=== PATIENT | female | born 1980 | race Caucasian/White ===

== ENCOUNTER 2023-05-09 11:25 | Emergency (ER) | payer BC, SELFPAY ==
[2023-05-09 11:39] VITALS: BP 166/98; PULSE 73; RESP 16; TEMP 37.2; O2SAT 99
--- NOTE | 2023-05-09 11:51 | ED_ITS ---
HPI - Abdominal Pain General Chief Complaint: Abdominal Pain Stated Complaint: STOMACH PAIN Time Seen by Provider: 05/09/23 11:33 Source: patient Mode of arrival: walk-in Related Data Home Medications Medication Instructions Recorded Confirmed metoprolol succinate 25 mg 25 mg PO DAILY 05/09/23 05/09/23 tablet,extended release 24 hr montelukast 10 mg tablet 10 mg PO DAILY 05/09/23 05/09/23 (Singulair) olmesartan 20 mg tablet 20 mg PO DAILY 05/09/23 05/09/23 Allergies Allergy/AdvReac Type Severity Reaction Status Date / Time No Known Drug Allergies Allergy Verified 05/09/23 11:39 [facility] Medical History (Updated 05/09/23 @ 15:12 by Justin Aragon MD) Exam Narrative Exam Narrative: patient appears uncomfortable but did not want anything for pain on her arrival. She is awake alert oriented ?3. Constitutional she has no scleral icterus or jaundice. Respirations no respiratory distress no wheezes rales or rhonchi. Cardio heart sounds normal no S3-S4 murmur. Gastrointestinal abdomen was not distended but she did have equivocal Robles sign. No tenderness at McBurney's point. There is good bowel sounds. No evidence of trauma injury or hepatosplenomegaly. Constitutional Vital Signs - 24 hr 05/09/23 11:39 Temperature 98.9 F Pulse Rate [Monitor] 73 Respiratory Rate 16 Blood Pressure [Left Arm] 166/98 H Pulse Oximetry 99 Oxygen Delivery Method Room Air Course Vital Signs Vital signs: Vital Signs Temperature 98.9 F 05/09/23 11:39 Pulse Rate 73 05/09/23 11:39 Respiratory Rate 16 05/09/23 11:39 Blood Pressure 166/98 H 05/09/23 11:39 Pulse Oximetry 99 05/09/23 11:39 Oxygen Delivery Method Room Air 05/09/23 11:39 Temperature 98.9 F 05/09/23 11:39 Pulse Rate 73 05/09/23 11:39 Respiratory Rate 16 05/09/23 11:39 Blood Pressure 166/98 H 05/09/23 11:39 Pulse Oximetry 99 05/09/23 11:39 Oxygen Delivery Method Room Air 05/09/23 11:39 MDM - Abdominal Pain MDM Narrative Medical decision making narrative: this patient underwent laboratory testing and gallbladder ultrasonography. She was quite stoic but did not want anything for pain. I believe her symptoms are most consistent with biliary dysfunction but there is no evidence of obstruction, infection at this time. We will place her on a low-fat diet. She'll follow up with primary care doctor for further testing and evaluation we will give her copy of her gallbladder and laboratory testing Lab Data Labs: Lab Results 05/09/23 05/09/23 05/09/23 Range/Units 11:49 12:00 12:06 WBC 12.5 H (4.0-11.0) 10^3/uL RBC 4.10 L (4.20-5.40) 10^6/uL Hgb 12.3 (12.0-16.0) g/dL Hct 36.1 (36.0-48.0) % MCV 88.0 (81.0-99.0) fL MCH 30.0 (26.7-34.0) pg MCHC 34.1 (29.9-35.2) g/dL RDW 12.5 (11.0-15.0) % Plt Count 223 (150-450) 10^3/uL MPV 10.7 (9.5-13.5) fL Neut % (Auto) 80.8 H (43.0-75.0) % Lymph % (Auto) 13.5 L (20.5-60.0) % Carter % (Auto) 4.6 (1.7-12.0) % Eos % (Auto) 0.5 L (0.9-7.0) % Baso % (Auto) 0.2 (0.2-2.0) % Neut # (Auto) 10.1 H (1.4-6.5) 10^3/uL Lymph # (Auto) 1.7 (1.2-3.8) 10^3/uL Carter # (Auto) 0.6 (0.3-0.8) 10^3/uL Eos # (Auto) 0.1 (0.0-0.7) 10^3/uL Baso # (Auto) 0.0 (0.0-0.1) 10^3/uL Abs Immat Gran (auto) 0.05 H (0.00-0.03) 10^3/uL Imm/Tot Granulo (auto) 0.4 (0.0-0.5) % Sodium 135 L (136-145) mmol/L Potassium 3.8 (3.5-5.1) mmol/L Chloride 104 (98-107) mmol/L Carbon Dioxide 24.5 (21.0-32.0) mmol/L Anion Gap 10.3 BUN 14.0 (7.0-18.0) mg/dL Creatinine 0.77 (0.55-1.02) mg/dL Est GFR ( Amer) >60 (>=60) Est GFR (Non-Af Amer) >60 (>=60) BUN/Creatinine Ratio 18.2 Glucose 114 H (74-106) mg/dL Lactate 1.6 (0.4-2.0) mmol/L Calcium 8.7 (8.5-10.1) mg/dL Total Bilirubin 0.9 (0.2-1.0) mg/dL AST 19 (15-37) U/L ALT 27 (14-59) U/L Alkaline Phosphatase 55 (46-116) U/L Total Protein 7.3 (6.4-8.2) g/dL Albumin 3.6 (3.4-5.0) g/dL Globulin 3.7 g/dL Albumin/Globulin Ratio 1.0 Lipase 52.0 L (73.0-393.0) U/L Urine Color Yellow (YELLOW) Urine Clarity Clear (CLEAR) Urine pH 6.5 (5.0-9.0) Ur Specific Roggen 1.025 (1.005-1.025) Urine Protein Trace (NEG/TRACE) mg/dL Urine Glucose (UA) Negative (NEGATIVE) mg/dL Urine Ketones 15 A (NEGATIVE) mg/dL Urine Occult Blood Negative (NEGATIVE) Urine Nitrite Negative (NEGATIVE) Urine Bilirubin Negative (NEGATIVE) Urine Urobilinogen 1.0 (0.2-1.0) EU/dL Ur Leukocyte Esterase Negative (NEGATIVE) Discharge Plan Discharge Chief Complaint: Abdominal Pain Clinical Impression: Abdominal pain Patient Disposition: Home, Self-Care Time of Disposition Decision: 15:11 Prescriptions / Home Meds: No Action olmesartan 20 mg tablet 20 mg PO DAILY montelukast [Singulair] 10 mg tablet 10 mg PO DAILY metoprolol succinate 25 mg tablet extended release 24 hr 25 mg PO DAILY Instructions: Abdominal Pain (ED) Additional Instructions: avoid fatty greasy foods/return for fever or worse pain/Zofran as needed for nausea, follow with primary care doctor Stand Alone Forms: Portal Instructions Referrals: [facility] [Other] - 1 week
--- NOTE | 2023-05-09 11:55 | US_ITS ---
The [address] [address] Patient Name: KRUNAL REID MRN: [id number] date: 1980 Sex: F Assigned Patient Location: ED.MAIN Current Patient Location: ER Accession/Order Number: [id number] Exam Date: 05/09/2023 13:03 Report Date: 05/09/2023 14:39 At the request of: JAI CHAVEZ Procedure: US right upper quadrant EXAMINATION: US right upper quadrant HISTORY: ruq pain , acute COMPARISON: No relevant comparison available. TECHNIQUE: Transabdominal evaluation of the right upper quadrant. FINDINGS: LIVER: Normal size and echotexture. Color Doppler demonstrates patent hepatic veins. PORTAL VEIN: Duplex Doppler demonstrates normal hepatopetal flow pattern with flow velocity averaging 34 cm/s. GALLBLADDER: No visible gallstones, wall thickening, or pericholecystic free fluid. Negative sonographic Robles's sign. BILIARY: No abnormal dilation or stones. Common bile duct diameter is within normal limits. PANCREASE: No visible mass, abnormal atrophy, or duct dilation. KIDNEY: No hydronephrosis. No visible mass or stones. Size: 10.8 x 5.6 x 7.0 cm IMPRESSION: 1. No acute or suspicious findings to account for patient's symptoms. Electronically authenticated by: TOM OSORIO Date: 05/09/2023 14:39
[2023-05-09 12:32] LABS: Basophils Percent Auto 0.2 % (0.2-2.0); Eosinophils Absolute Auto 0.1 10^3/uL (0.0-0.7); Eosinophils Percent Auto 0.5 % (0.9-7.0); Hematocrit 36.1 % (36.0-48.0); Hemoglobin 12.3 g/dL (12.0-16.0); Immature Granulocytes Abs Auto 0.05 10^3/uL (0.00-0.03); Immature Granulocytes Pct Auto 0.4 % (0.0-0.5); Lymphocytes Absolute Auto 1.7 10^3/uL (1.2-3.8); Lymphocytes Percent Auto 13.5 % (20.5-60.0); Mean Corpuscular HGB Conc 34.1 g/dL (29.9-35.2); Mean Platelet Volume 10.7 fL (9.5-13.5); Monocytes Absolute Auto 0.6 10^3/uL (0.3-0.8); Monocytes Percent Auto 4.6 % (1.7-12.0); Neutrophils Absolute Auto 10.1 10^3/uL (1.4-6.5); Neutrophils Percent Auto 80.8 % (43.0-75.0); Platelet Count 223 10^3/uL (150-450); Red Cell Distribution Width 12.5 % (11.0-15.0); White Blood Count 12.5 10^3/uL (4.0-11.0)
[2023-05-09 12:35] LABS: Lactate/Lactic Acid 1.6 mmol/L (0.4-2.0)
[2023-05-09 12:41] LABS: Alanine Aminotransferase 27 U/L (14-59); Albumin Level 3.6 g/dL (3.4-5.0); Alkaline Phosphatase 55 U/L (46-116); Anion Gap 10.3; Aspartate Amino Transferase 19 U/L (15-37); BUN Creatinine Ratio 18.2; Bilirubin Total 0.9 mg/dL (0.2-1.0); Calcium 8.7 mg/dL (8.5-10.1); Carbon Dioxide 24.5 mmol/L (21.0-32.0); Chloride 104 mmol/L (98-107); Estimated GFR (African America >60 (>=60); Estimated GFR (Non-African Ame >60 (>=60); Globulin 3.7 g/dL; Glucose 114 mg/dL (74-106); Potassium 3.8 mmol/L (3.5-5.1); Sodium 135 mmol/L (136-145); Total Protein 7.3 g/dL (6.4-8.2)
[2023-05-09 12:51] LABS: Bilirubin Urine NEGATIVE (NEGATIVE); Blood Urine NEGATIVE (NEGATIVE); Clarity Urine CLEAR (CLEAR); Color Urine YELLOW (YELLOW); Glucose Urine UA NEGATIVE (NEGATIVE); Ketones Urine 15 mg/dL (NEGATIVE); Leukocyte Esterase Urine NEGATIVE (NEGATIVE); Nitrite Urine NEGATIVE (NEGATIVE); Protein Urine TRACE mg/dL (NEG/TRACE); Specific Gravity Urine 1.025 (1.005-1.025); pH Urine 6.5 (5.0-9.0)
[2023-05-09 12:54] LABS: Urine Microscopic Indicated NO
[2023-05-09] MEDS: 0.9 % SODIUM CHLORIDE 1,000 ML 100 ML IV (13:51)
[2023-05-09] MEDS: ACETAMINOPHEN 325 MG TABLET 650 MG PO (14:09)
[2023-05-09 15:21] VITALS: BP 127/76; PULSE 78; RESP 16; TEMP 36.8; O2SAT 99
== END 2023-05-09 15:21 | disposition home or self-care (01) ==
PROVIDERS: Emergency Provider Emergency Medicine Emergency Medical Services
DX: R10.9 Unspecified abdominal pain (principal)
CPT/HCPCS: 36415; 76705; 80053; 81003; 83605; 83690; 85025; 99285